=== PATIENT | female | born 1995 | race Two or more races ===

== ENCOUNTER 2020-11-23 10:18 | Emergency (ER) | payer MEDICAID, OTHER ==
[~2020-11-23] VITALS: Ht 172.7 cm; Wt 90.7 kg
--- NOTE | 2020-11-23 11:35 | NUR ---
PT SEEN AND EXAMINED BY .
[2020-11-23 11:46] LABS: BILIRUBIN,URINE Negative (NEGATIVE); COLOR,URINE YELLOW (YELLOW); LEUKOCYTE ESTERASE ,URINE Negative (NEGATIVE); NITRITE, URINE Negative (NEGATIVE); PROTEIN,URINE Negative (NEGATIVE); UGLUCOSE Negative (NEGATIVE); UROBILINOGEN,URINE 0.2 EU/dL (0.2)
--- NOTE | 2020-11-23 11:57 | NUR ---
WET MOUNT OBTAINED BY AND SENT TO LAB.
[2020-11-23 12:46] VITALS: BP 110/68
--- NOTE | 2020-11-23 12:46 | NUR ---
Patient discharged to home in stable condition. Written and verbal after care instructions given. Patient verbalizes understanding of instruction.
== END 2020-11-23 12:47 | disposition home or self-care (01) ==
LOC: ER 10:23
DX: N89.8 Other specified noninflammatory disorders of vagina (principal); F41.9 Anxiety disorder, unspecified; F42.9 Obsessive-compulsive disorder, unspecified
CPT/HCPCS: 84703-TC; 87210-TC